=== PATIENT | female | born 2000 | race Caucasian/White ===

== ENCOUNTER 2022-04-10 22:28 | Emergency (ER) | payer OTHER ==
[~2022-04-10] VITALS: Ht 162.6 cm; Wt 90.7 kg
--- NOTE | 2022-04-10 23:45 | NUR ---
TO LOBBY FOLLOWING TRIAGE
== END 2022-04-11 01:35 | disposition left against medical advice (07) ==
LOC: MED 22:28
DX: R05.9 Cough, unspecified (principal); R51.9 Headache, unspecified; R50.9 Fever, unspecified; Z53.21 Procedure and treatment not carried out due to patient leaving prior to being seen by health care provider

== ENCOUNTER 2022-04-14 10:15 | Emergency (ER) | payer OTHER ==
[~2022-04-14] VITALS: Ht 172.7 cm; Wt 83.9 kg
[2022-04-14 10:51] VITALS: BP 118/78
--- NOTE | 2022-04-14 10:54 | NUR ---
21/F WALKED IN C/O RIGHT ANKLE PAIN S/P "STEPPING WRONG" YESTERDAY. PT REPORTS HX FX TO THE SAME ANKLE 2 MONTHS AGO. AMBULATORY, VITALS STABLE. AAO4. PMH: DENIES
--- NOTE | 2022-04-14 12:03 | NUR ---
Pt ambulated to bed 11 with steady gait.
[2022-04-14] MEDS ORDERED: IBUP-2213 PO (13:13)
[2022-04-14 13:27] VITALS: BP 119/54
== END 2022-04-14 13:23 | disposition home or self-care (01) ==
LOC: MED 10:15
DX: S93.401A Sprain of unspecified ligament of right ankle, initial encounter (principal); Z79.1 Long term (current) use of non-steroidal anti-inflammatories (NSAID); X50.1XXA Overexertion from prolonged static or awkward postures, initial encounter; Y93.89 Activity, other specified; Y92.89 Other specified places as the place of occurrence of the external cause; Y99.8 Other external cause status
CPT/HCPCS: 73610; 99283

== ENCOUNTER 2022-05-23 16:05 | Emergency (ER) | payer OTHER ==
[~2022-05-23] VITALS: Ht 172.7 cm; Wt 114.3 kg
[~2022-05-23 16:05] MED LIST: IBUP-2213 PO
[2022-05-23 16:15] VITALS: BP 122/57
[2022-05-23 17:06] LABS: APPEARANCE,URINE SL CLOUDY (CLEAR); BILIRUBIN,URINE NEGATIVE (NEGATIVE); BLOOD, URINE NEGATIVE (NEGATIVE); COLOR,URINE YELLOW (YELLOW); LEUKOCYTE ESTERASE ,URINE TRACE (NEGATIVE); NITRITE, URINE NEGATIVE (NEGATIVE); UGLUCOSE NEGATIVE (NEGATIVE)
[2022-05-23 17:52] LABS: RBC,URINE 0-5 /HPF (0-5); WBC,URINE 0-5 /HPF (0-5)
--- NOTE | 2022-05-23 19:15 | NUR ---
NOTIFIED BY LAB THAT PT WAS NOT FOUND IN THE LOBBY FOR LAB DRAW.
--- NOTE | 2022-05-23 19:37 | NUR ---
CALLED PATIENT ON NUMBER LISTED WITH NO ANSWER AT THIS TIME.
--- NOTE | 2022-05-23 19:52 | NUR ---
PT FOUND IN LOBBY. LABS DRAWN
[2022-05-23] MEDS ORDERED: [UNRECOGNIZED DRUG - CODE] PO (19:58)
[2022-05-23] MEDS ORDERED: CEPH250C16 PO (19:58)
[2022-05-23 20:12] LABS: BASOPHILS % (AUTO) 0.3 % (0.0-2.0); EOSINOPHILS % (AUTO) 0.4 % (0.0-4.0); HEMATOCRIT 37.1 % (36-48); HEMOGLOBIN 12.3 g/dL (12.0-16.0); LYMPHOCYTES # (AUTO) 2.2 K/uL (2.5-16.5); LYMPHOCYTES % (AUTO) 16.5 % (20.5-51.1); MEAN CORPUSCULAR HEMOGLOBIN 28 pg (27-31); MEAN CORPUSCULAR HGB CONC 33 g/dL (33-37); MEAN CORPUSCULAR VOLUME 82.9 fL (80-94); MONOCYTES # (AUTO) 0.7 K/uL (0.8-1.0); MONOCYTES % (AUTO) 5.1 % (1.7-9.3); NEUTROPHILS # (AUTO) 10.6 K/uL (1.8-7.7); NEUTROPHILS % (AUTO) 77.7 % (42.2-75.2); PLATELET COUNT (AUTO) 304 K/uL (140-450); RED BLOOD CELL COUNT(AUTO) 4.48 MIL/uL (4.20-5.40); RED CELL DISTRIBUTION WIDTH 13.8 % (11.6-13.7); WHITE BLOOD COUNT (AUTO) 13.6 K/uL (4.5-11.0)
[2022-05-23 20:35] LABS: ALBUMIN 3.8 g/dL (3.4-5.0); ANION GAP 14.6 (8-16); CARBON DIOXIDE 24.1 mmol/L (21-32); CREATININE 0.7 mg/dL (0.6-1.3); POTASSIUM 3.7 mmol/L (3.5-5.1); TOTAL BILIRUBIN 0.3 mg/dL (0.0-1.0)
--- NOTE | 2022-05-23 20:46 | NUR ---
Patient discharged with v/s stable. Written and verbal after care instructions given and explained. Patient alert, oriented and verbalized understanding of instructions. Ambulatory with steady gait. All questions addressed prior to discharge. ID band removed. Patient advised to follow up with PMD. Rx of KEFLEX AND VITAMINS given. Patient educated on indication of medication including possible reaction and side effects. Opportunity to ask questions provided and answered.
== END 2022-05-23 20:46 | disposition home or self-care (01) ==
LOC: MED 16:05
DX: O23.41 Unspecified infection of urinary tract in pregnancy, first trimester (principal); N39.0 Urinary tract infection, site not specified; Z3A.01 Less than 8 weeks gestation of pregnancy; Z88.8 Allergy status to other drugs, medicaments and biological substances
CPT/HCPCS: 36415; 76801; 80053; 81001; 81025; 84702; 85025; 86886; 86900; 86901; 99284; Q0092